=== PATIENT | female | born 1985 | race Asian ===

== ENCOUNTER 2019-04-13 05:58 | Emergency (ER) | payer SELFPAY ==
[~2019-04-13] VITALS: Ht 154.9 cm; Wt 63.5 kg
[2019-04-13 06:06] VITALS: BP_SYST 158
--- NOTE | 2019-04-13 06:09 | NUR ---
Pt placed to ER bed 07. Report given to CHILO Machado.
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
--- NOTE | 2019-04-13 06:26 | NUR ---
Dr. Buenrostro bedside for Pt eval
[2019-04-13] MEDS ORDERED: KETOROLAC TROMETHAMINE 60 MG/2 ML VIAL IM ONE (06:30)
--- NOTE | 2019-04-13 06:31 | NUR ---
Portable X Ray bedside, well tolerated
--- NOTE | 2019-04-13 07:07 | NUR ---
Patient given written and verbal discharge instructions and verbalizes understanding. ER MD discussed with patient the results and treatment provided. Patient in stable condition. ID arm band removed. Rx of Darrington and Motrin given. Patient educated on pain management and to follow up with PMD. Pain Scale 0/10 Opportunity for questions provided and answered. Medication side effect fact sheet provided.
[2019-04-13 07:08] VITALS: BP_SYST 123
== END 2019-04-13 07:08 | disposition home or self-care (01) ==
LOC: SED 05:58
DX: M25.562 Pain in left knee (principal)
CPT/HCPCS: 73560; 96372; 99283; J1885